=== PATIENT | male | born 1985 | race Caucasian/White ===

== ENCOUNTER 2022-08-07 16:40 | Emergency (ER) | payer OTHER, SELFPAY ==
--- NOTE | ~2022-08-07 | CT_ITS ---
EXAMINATION: CT brain wo con DATE: 08/07/2022 17:43 INDICATION: Syncope. Possible seizure. TECHNIQUE: Computed tomography (CT) of the head was performed without intravenous contrast. The mA wa s adjusted according to patient size. Iterative reconstruction technique was employed. Exam dose: 68 1.00 mGy-cm total exam DLP. COMPARISON: None FINDINGS: No intracranial mass lesion or hemorrhage or cerebrovascular accident. No midline shift or mass effect. Normal benson-white matter differentiation. Normal ventricular size. No subdural or epidur al hematoma. Orbital contents are normal. No fracture or bone destruction of the cranial vault. The mastoid air cells and paranasal sinuses are normally developed and aerated. IMPRESSION: Negative Reviewed, dictated and finalized at [facility]. Reviewed, dictated and finalized at location [facility]. IMPRESSION: Negative
--- NOTE | ~2022-08-07 | XR_ITS ---
XR chest 2V DATE: 08/07/2022 17:52 INDICATION: Chest pressure. Syncope, seizure. TECHNIQUE: PA and lateral views COMPARISON: None FINDINGS: Normal heart size. No hilar or mediastinal enlargement. No pulmonary infiltrate or consolid ation, pleural effusion or pulmonary vascular congestion or pneumothorax is detected. IMPRESSION: No active cardiopulmonary disease Reviewed, dictated and finalized at location [facility].
[2022-08-07 16:38] VITALS: BP 113/82; PULSE 57; RESP 18; TEMP 36.2; O2SAT 95
--- NOTE | 2022-08-07 16:47 | ECG_ITS ---
Measurements Intervals [place] Rate: 52 P: 41 [place]: 187 QRS: 0 QRSD: 100 T: 17 QT: 414 QTc: 385 Interpretive Statements SINUS BRADYCARDIA RSR' IN V1 OR V2, CONSIDER RIGHT VENTRICULAR HYPERTROPHY OR RIGHT VCD BORDERLINE ECG NO PREVIOUS ECG AVAILABLE FOR COMPARISON Electronically Signed On 08-07-2022 20:00:49 CDT by Yong Ambrose D.O.
[2022-08-07 16:54] LABS: Basophils Absolute Auto 0.1 K/mm3 (0.0-0.1); Basophils Percent Auto 1.1 % (0.2-1.2); Eosinophils Absolute Auto 0.1 K/mm3 (0-0.3); Eosinophils Percent Auto 2.1 % (0-4.4); Hematocrit 40.5 % (42.0-52.0); Hemoglobin 14.1 g/dL (14.0-18.0); Immature Granulocyte Absolute 0.01 K/mm3 (0.00-0.031); Immature Granulocyte Percent A 0.2 % (0-0.5); Lymphocytes Absolute Auto 3.07 K/mm3 (0.9-3.2); Lymphocytes Percent Auto 54.5 % (18.3-44.2); Mean Corpuscular HGB Conc 34.8 g/dl (32-36); Mean Corpuscular Hemoglobin 30.6 pg (26-34); Mean Corpuscular Volume 87.9 fl (80-100); Monocytes Absolute Auto 0.5 K/mm3 (0.1-0.6); Monocytes Percent Auto 9.6 % (2.6-8.5); Neutrophils Absolute Auto 1.8 K/mm3 (1.3-6.7); Neutrophils Percent Auto 32.5 % (45.5-73.1); Platelet Count Result 221 k/mm3 (150-375); Red Blood Count 4.61 M/mm3 (4.6-6.20); Red Cell Distribution Width 12.4 % (11.5-14.5); White Blood Count 5.6 K/mm3 (4.5-10.0)
[2022-08-07 17:03] LABS: Alanine Aminotransferase 20 U/L (6-50); Albumin Level 4.2 g/dL (3.5-5.1); Alkaline Phosphatase 82 U/L (38-126); Anion Gap 5 mmol/L (8-16); Aspartate Amino Transferase 27 U/L (17-59); Bilirubin,Total 0.4 mg/dL (0.2-1.3); Blood Urea Nitrogen 15 mg/dL (9-20); Calcium 8.5 mg/dL (8.4-10.2); Carbon Dioxide 29 mmol/L (22-30); Chloride 104 mmol/L (98-107); Estimated CRCL calculation 96 ml/min; Estimated Glomerular Filt Rate > 60; Glucose 97 mg/dL (65-110); Potassium 3.3 mmol/L (3.4-5.0); Sodium 138 mmol/L (137-145)
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
[2022-08-07] MEDS: SODIUM CHLORIDE 0.9% IV 1,000 ML 999 ML IV CONT (17:42)
[2022-08-07 18:05] LABS: Prothrombin Time 13.6 Seconds (11.1-14.7)
[2022-08-07 18:06] LABS: Magnesium 2.1 mg/dL (1.6-2.3); Partial Thromboplastin Time 28.7 SECONDS (22.3-36.8)
[2022-08-07 18:07] LABS: Ethanol < 10 mg/dL (<10)
[2022-08-07 18:19] LABS: Troponin I < 0.012 ng/mL (0.000-0.034)
[2022-08-07 18:55] VITALS: BP 117/84; PULSE 56; RESP 18; O2SAT 100
[2022-08-07 19:18] LABS: Amphetamine Screen Urine Negative (Negative); Barbiturate Screen Urine Negative (Negative); Benzodiazepines Screen Urine Negative (Negative); Cannabinoid Screen Urine Negative (Negative); Cocaine Screen Urine Negative (Negative); Methadone Screen Urine Negative (Negative); Opiate Screen Urine Negative (Negative); Phencyclidine Screen Urine Negative (Negative)
[2022-08-07 19:19] LABS: Appearance Urine Clear (Clear); Bacteria Urine None Seen /hpf; Bilirubin Urine Negative (Negative); Blood Urine Negative (Negative); Color Urine Yellow (Yellow); Glucose Urine UA Negative (Negative); Ketones Urine Negative (Negative); Leukocyte Esterase Ur 1+ LEU/UL (Negative); Need Manual Microscopic Reviewed; Nitrate Urine Negative (Negative); Non Pathogenic Casts 0-2; Protein Urine Negative (Negative); RBC Urine 0-2 /hpf (0-2); Specific Grav Ur 1.018 (1.001-1.035); Squamous Epithelial Cell Urine None seen /hpf (Few); WBC Urine 0-5 /hpf; pH Urine 6.5 (5.0-9.0)
[2022-08-07 19:25] LABS: Add Urine Microscopic? YES
[2022-08-07 20:03] VITALS: BP 116/82; PULSE 61; RESP 16; O2SAT 100
[2022-08-07] MEDS: POTASSIUM CHLORIDE 20 MEQ ER TABLET 40 MEQ PO (20:06)
== END 2022-08-07 20:21 | disposition home or self-care (01) ==
PROVIDERS: Emergency Provider Emergency Medicine
DX: R56.9 Unspecified convulsions (principal); R00.1 Bradycardia, unspecified; R94.31 Abnormal electrocardiogram [ECG] [EKG]
CPT/HCPCS: 36415; 70450; 71046; 80053; 80307; 81001; 83605; 83735; 84484; 85025; 85610; 85730; 93005; 96360; 99284; A9270; J7030

== ENCOUNTER 2022-08-24 07:44 | Inpatient (IN) | payer OTHER, SELFPAY ==
[2022-08-24] VITALS (14 sets, daily range): BP systolic 107–131; BP diastolic 68–81; PULSE 51–93; RESP 12–21; TEMP 36.4–36.6; O2SAT 96–100; BMI 27.1
--- NOTE | 2022-08-24 | ECHO_ITS ---
Patient Info Name: Vitaly Hinds Age: 37 years : 1985 Gender: Male Ht: 68 in Wt: 178 lbs BSA: 1.98 m2 HR: 72 bpm BP: 117 / 80 mmHg Heart Rhythm: Sinus Rhythm Technical Quality: Fair Exam Date: 08/24/2022 2:47 PM Exam Location: [facility] Exam Room: ICU6 Patient Status: Inpatient Admit Date: 08/24/2022 Staff Ordering Physician: Jw Ball MD [employer] Claim Examiner: Helen Yip RCS Attending Provider: Antonio Pompa MD Exam Type: CA echo doppler color flow Study Info Indications - SYNCOPE Complete two-dimensional, color flow and Doppler transthoracic echocardiogram is performed. Summary 1. Complete two-dimensional, color flow and Doppler transthoracic echocardiogram is performed. 2. Left ventricular chamber dimension is normal. 3. Left ventricular systolic function is normal, estimated at 60-65%. 4. Right ventricular systolic function is normal. 5. There is trivial pericardial effusion. 6. No significant valvular disease. Left Ventricle Left ventricular chamber dimension is normal. Left ventricular systolic function is normal, estimated at 60-65%. There is no increased left ventricular wall thickness. The left ventricular diastolic function is normal. Right Ventricle Right ventricular chamber dimension is normal. Right ventricular systolic function is normal. Left Atria Left atrial chamber dimension is normal. Right Atria Right atrial chamber dimension is normal. Atrial Septum Intact interatrial septum visualized by color flow imaging. Aortic Valve The aortic valve is probable trileaflet. There is no aortic valve stenosis. There is no aortic valve regurgitation. Pulmonic Valve The pulmonic valve is not well visualized. Mitral Valve There is trace mitral valve regurgitation. Tricuspid Valve There is trace tricuspid valve regurgitation. Pericardium/Pleural There is trivial pericardial effusion. Inferior Vena Cava Normal inferior vena cava with >50% collapse upon inspiration consistent with normal right atrial pressure, 3 mmHg. Aorta The aortic root size at the sinus of Valsalva is normal. Left Ventricular Outflow Tract Name Value Normal LVOT 2D LVOT Diameter 2.1 cm LVOT Doppler LVOT Peak Gradient 6 mmHg LVOT Mean Gradient 3 mmHg LVOT VTI 22 cm LVOT VTI/AV VTI Ratio 0.9 LVOT Stroke Volume 77 ml LVOT CO 17.4 l/min LVOT CI 8.8 l/min/m2 Pulmonic Valve Name Value Normal PV Doppler PV Peak Gradient 3 mmHg Mitral Valve Name Value Normal MV Doppler
--- NOTE | ~2022-08-24 | XR_ITS ---
Portable chest x-ray Comparison: 08/24/2022 Clinical History: Pacemaker placed Findings: Lungs are clear, without focal consolidation, pleural effusion, or pneumothorax. Cardiome diastinal silhouette is stable, now with pacemaker. Bones and soft tissues are unremarkable. Impression: Status post pacemaker placement, with leads in appropriate position. Clear lungs. No pneumothorax. Reviewed, dictated and finalized at location . Impression: Status post pacemaker placement, with leads in appropriate position. Clear lungs. No pneumothorax.
--- NOTE | ~2022-08-24 | XR_ITS ---
Portable chest x-ray Comparison: 08/07/2022 Clinical History: Syncope Findings: Lungs are clear, without focal consolidation or pleural effusion. Cardiomediastinal silho uette is stable. Bones and soft tissues are unremarkable. Impression: Clear lungs. Reviewed, dictated and finalized at location . Impression: Clear lungs.
--- NOTE | ~2022-08-24 | XR_ITS ---
EXAMINATION: XR chest 2V 08/26/2022 12:31 INDICATION: Pacemaker insertion PROCEDURE: 2 view chest COMPARISON: 08/25/2022 FINDINGS: The lungs are clear. The cardiomediastinal silhouette is within normal limits. There are no pleural effusions. There is no pneumothorax suspected. Sequential pacemaker leads in the right a trium and right ventricle respectively. IMPRESSION: 1: NO ACUTE CARDIOPULMONARY DISEASE. Reviewed, dictated and finalized at location A.
--- NOTE | 2022-08-24 08:02 | ECG_ITS ---
Measurements Intervals [place] Rate: 64 P: 38 MD: 188 QRS: 17 QRSD: 100 T: 27 QT: 376 QTc: 389 Interpretive Statements SINUS RHYTHM INCOMPLETE RIGHT BUNDLE BRANCH BLOCK ST ELEVATION IN DIFFUSE LEADS- PROBABLY EARLY REPOLARIZATION BORDERLINE ECG COMPARED TO ECG 08/07/2022 19:39:38 SINUS RHYTHM NOW PRESENT Electronically Signed On 08-24-2022 8:50:44 CDT by Yong Ambrose D.O.
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
[2022-08-24 08:48] LABS: Basophils Absolute Auto 0.1 K/mm3 (0.0-0.1); Basophils Percent Auto 1.1 % (0.2-1.2); Eosinophils Absolute Auto 0.1 K/mm3 (0-0.3); Eosinophils Percent Auto 1.8 % (0-4.4); Hemoglobin 14.7 g/dL (14.0-18.0); Immature Granulocyte Absolute 0.04 K/mm3 (0.00-0.031); Immature Granulocyte Percent A 0.9 % (0-0.5); Lymphocytes Absolute Auto 1.29 K/mm3 (0.9-3.2); Lymphocytes Percent Auto 28.5 % (18.3-44.2); Mean Corpuscular HGB Conc 34.2 g/dl (32-36); Mean Corpuscular Hemoglobin 30.6 pg (26-34); Mean Corpuscular Volume 89.4 fl (80-100); Mean Platelet Volume 9.4 fl (7.4-10.4); Monocytes Absolute Auto 0.4 K/mm3 (0.1-0.6); Monocytes Percent Auto 8.8 % (2.6-8.5); Neutrophils Absolute Auto 2.7 K/mm3 (1.3-6.7); Neutrophils Percent Auto 58.9 % (45.5-73.1); Platelet Count Result 225 k/mm3 (150-375); Red Blood Count 4.81 M/mm3 (4.6-6.20); Red Cell Distribution Width 12.4 % (11.5-14.5); White Blood Count 4.5 K/mm3 (4.5-10.0)
[2022-08-24 09:03] LABS: Alanine Aminotransferase 24 U/L (6-50); Albumin Level 4.1 g/dL (3.5-5.1); Alkaline Phosphatase 66 U/L (38-126); Anion Gap 8 mmol/L (8-16); Aspartate Amino Transferase 28 U/L (17-59); Bilirubin,Total 0.5 mg/dL (0.2-1.3); Blood Urea Nitrogen 17 mg/dL (9-20); Calcium 8.9 mg/dL (8.4-10.2); Carbon Dioxide 29 mmol/L (22-30); Chloride 101 mmol/L (98-107); Estimated Glomerular Filt Rate > 60; Glucose 112 mg/dL (65-110); Lactic Acid Reflex 1.6 mmol/L (0.7-2.0); Potassium 3.7 mmol/L (3.4-5.0); Sodium 138 mmol/L (137-145)
[2022-08-24] MEDS: LORazepam INJ (*CRX) 2 MG/ML VIAL (09:03)
[2022-08-24] MEDS: SODIUM CHLORIDE 0.9% IV 1,000 ML 999 ML (09:04)
[2022-08-24 09:14] LABS: Troponin I < 0.012 ng/mL (0.000-0.034)
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
--- NOTE | 2022-08-24 11:59 | PC.NURSE ---
This patient, Vitaly Hinds, was admitted to Intensive Care Unit-6. Patient/family oriented to hospital policies and general routines including ID bracelet, bed and alarms, visiting hours, pain management, procedures, bathroom and other care routines, personal items, smoking policy, room service/diet, and visiting hours. Information on how to activate the Rapid Response Team has been discussed. Patient/Family are encouraged to report perceived risks to care and to ask questions if they do not understand what they are told or what they should do.
[2022-08-24] MEDS: POTASSIUM CHLORIDE 20 MEQ ER TABLET 40 MEQ PO (12:02)
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
[2022-08-25] VITALS (17 sets, daily range): BP systolic 98–125; BP diastolic 42–91; PULSE 61–86; RESP 12–19; TEMP 36.6–36.8; O2SAT 96–100
[2022-08-25 07:25] LABS: Alanine Aminotransferase 23 U/L (6-50); Alkaline Phosphatase 60 U/L (38-126); Anion Gap 7 mmol/L (8-16); Aspartate Amino Transferase 27 U/L (17-59); Bilirubin,Total 0.7 mg/dL (0.2-1.3); Blood Urea Nitrogen 11 mg/dL (9-20); Carbon Dioxide 27 mmol/L (22-30); Chloride 105 mmol/L (98-107); Estimated CRCL calculation 120 ml/min; Estimated Glomerular Filt Rate > 60; Glucose 98 mg/dL (65-110); Magnesium 2.2 mg/dL (1.6-2.3); Potassium 3.6 mmol/L (3.4-5.0); Sodium 139 mmol/L (137-145)
--- NOTE | 2022-08-25 07:54 | WPDMODSED ---
Moderate Sedation Note-Pt Data Patient Data Diagnosis: Syncope with sick sinus syndrome Present Complaint: Intermittent syncopal episodes Procedure to be performed/Plan: Permanent pacemaker implantation Allergies Allergy/AdvReac Type Severity Reaction Status Date / Time No Known Allergies Allergy Verified 08/07/22 17:43 Home Medications Medication Instructions Recorded Confirmed Type fluticasone propionate 50 2 spray intranasal DAILY 08/24/22 08/24/22 History mcg/actuation nasal spray,suspension omeprazole 40 mg capsule,delayed 40 mg PO DAILY 08/24/22 08/24/22 History release sodium chloride, sodium 1 ea DAILY PRN Nasal Congestion 08/24/22 08/24/22 History bicarb-nasal rinse squeeze bottle with packet ([place] Sinus Rinse with packet) Current Medications: Active Medications Perflutren Lipid Microsphere (Perflutren Lipid Microspheres 1.5 Ml Vial Diluted To 10 Ml Total Volume) 0 ml IV PUSH ONCE PRN; Protocol PRN Reason: adequate visualization Stop: 08/26/22 10:51 Sedation/Anesthesia: No previous sedation/anesthesia problems (including family history). [facility] Surgical History Surgical History S/P tonsillectomy [place] teeth removed Family History Family History Father Cardiac arrest Cerebral palsy Mother Heart disease COPD (chronic obstructive pulmonary disease) Osteoarthritis Fibromyalgia Social History Social History Social History: Denies smoking alcohol and drug use. Smoking status: Never smoker Alcohol intake: never Substance use: never Substance use type: does not use Lack of Transportation: No Lack of Food: Never True Current Housing: I Have Housing Concerned About Future Housing: No Difficulty Paying Gas/Electric Bills: No Difficulty Paying for Meds: No Currently Unemployed: No Education: Trade/Vocational Certificate Difficulty w/ Childcare or Family Care: No Spiritual care concerns: No Mod Sed Physical Exam Physical Exam Pre Procedural Exam: Normal: Appearance, Neck, Throat, Airway, Lungs, Heart Size, Heart Rate, Heart Rhythm, Neuro Exam and Extremities Hours since solid foods: 12 Hours since liquid intake: 12 Mallampati Classification: class II Internal Medicine - PN: Obj Da Vital Signs Vital Signs: Vital Signs - 24 hr 08/24/22 07:56 08/24/22 08:36 08/24/22 08:46 Temperature 36.4 C Pulse Rate 65 64 66 Respiratory Rate 12 21 H 16 Blood Pressure 119/78 116/76 108/75 Pulse Oximetry 97 97 98 Oxygen Delivery Room Air 08/24/22 08:54 08/24/22 09:16 08/24/22 10:01 Temperature Pulse Rate 51 L 74 85 Respiratory Rate 17 17 14 Blood Pressure 124/73 112/71 117/80 Pulse Oximetry 98 100 100 Oxygen Delivery 08/24/22 11:30 08/24/22 11:33 08/24/22 12:00 Temperature Pulse Rate 83 86 87 Respiratory Rate 20 Blood Pressure 116/70 Pulse Oximetry 100 Oxygen Delivery 08/24/22 12:00 08/24/22 14:00 08/24/22 14:00 Temperature 36.6 C Pulse Rate 87 75 75 Respiratory Rate 20 14 Blood Pressure 131/73 111/71 Pulse Oximetry 100 99 Oxygen Delivery 08/24/22 16:00 08/24/22 16:00 08/24/22 16:00 Temperature 36.4 C Pulse Rate 75 78 78 Respiratory Rate 18 18 Blood Pressure 107/68 Pulse Oximetry 100 100 Oxygen Delivery Room Air 08/24/22 18:00 08/24/22 18:00 08/24/22 20:00 Temperature 36.6 C Pulse Rate 93 93 87 Respiratory Rate 20 20 Blood Pressure 124/76 Pulse Oximetry 100 100 Oxygen Delivery 08/24/22 20:00 08/24/22 22:00 08/24/22 22:00 Temperature Pulse Rate 82 68 68 Respiratory Rate 19 Blood Pressure 116/81 Pulse Oximetry 96 Oxygen Delivery 08/25/22 00:00 08/25/22 00:00 08/25/22 00:00 Temperature 36.6 C Pulse Rate 68 63 61 Respiratory Rate 19 14 Blood Pressure 98/42 L Pulse
--- NOTE | 2022-08-25 08:39 | WPDINTPN ---
Progress Note: A&P Assessment and Plan (1) Syncope, cardiogenic: Code(s): R55 - Syncope and collapse Status: Acute Assessment and Plan: Patient presented with history of multiple episodes of loss of consciousness and had a witnessed episode in the ER which was associated with 20+ second sinus pause on telemetry He had episode of sinus bradycardia in 30s with spontaneous recovery while I was interviewing him in the room Continue ICU telemetry monitoring, pacing pads on, atropine at bedside Cardiology consulted and plan for permanent pacemaker placement today Echocardiogram was unremarkable Replace potassium EKG reviewed Normal tsh and negative UDS (2) Sinus pause: Code(s): I45.5 - Other specified heart block Status: Acute Assessment and Plan: See above (3) Electrolyte abnormality: Code(s): E87.8 - Other disorders of electrolyte and fluid balance, not elsewhere classified Status: Acute Assessment and Plan: Potassium is on the lower side of normal. Ordered replacement Plan DVT prophylaxis -SCDs Code Status - Full Code Subjective Date/time seen: 08/25/22 Overnight events reviewed. Afebrile He states he had couple of episodes yesterday evening where he felt he was going to pass out but did not in symptoms spontaneous resolved within few seconds Sinus rhythm on the monitor On room air Other vitals acceptable Patient denies fever, chest pain, shortness of breath, cough, nausea vomiting, abdominal pain,, diarrhea, headache or constipation. All other systems were reviewed and were negative Review of Systems Review of Systems: All systems reviewed & are unremarkable except as noted in HPI and below (HPI) Exam Narrative: General: Pt is alert awake and in NAD Lungs/Chest: Trachea central Clear BS B/L, No crackles or wheezing. Cardiac: RRR. Normal S1 S2. No murmurs Circulation: Pedal pulses are intact and symmetrical. Abdomen: Normal bowel sounds.. Soft. NT. ND. Extremities: No clubbing, cyanosis or edema. Warm : Horton in place Neurologic: Follows commands. AO x3, muscle strength 5/5 bilaterally, cranial nerves 2-12 intact, extraocular muscles intact, no facial discrepancy, finger-nose test normal PERRL Skin: No Rash Objective Data Vital Signs Vital Signs: Vital Signs - 24 hr 08/24/22 08:46 08/24/22 08:54 08/24/22 09:16 Temperature Pulse Rate 66 51 L 74 Respiratory Rate 16 17 17 Blood Pressure 108/75 124/73 112/71 Pulse Oximetry 98 98 100 Oxygen Delivery 08/24/22 10:01 08/24/22 11:30 08/24/22 11:33 Temperature Pulse Rate 85 83 86 Respiratory Rate 14 20 Blood Pressure 117/80 116/70 Pulse Oximetry 100 100 Oxygen Delivery 08/24/22 12:00 08/24/22 12:00 08/24/22 14:00 Temperature 36.6 C Pulse Rate 87 87 75 Respiratory Rate 20 Blood Pressure 131/73 Pulse Oximetry 100 Oxygen Delivery 08/24/22 14:00 08/24/22 16:00 08/24/22 16:00 Temperature Pulse Rate 75 75 78 Respiratory Rate 14 18 Blood Pressure 111/71 Pulse Oximetry 99 100 Oxygen Delivery Room Air 08/24/22 16:00 08/24/22 18:00 08/24/22 18:00 Temperature 36.4 C Pulse Rate 78 93 93 Respiratory Rate 18 20 Blood Pressure 107/68 Pulse Oximetry 100 100 Oxygen Delivery 08/24/22 20:00 08/24/22 20:00 08/24/22 22:00 Temperature 36.6 C Pulse Rate 87 82 68 Respiratory Rate 20 19 Blood Pressure 124/76 116/81 Pulse Oximetry 100 96 Oxygen Delivery 08/24/22 22:00 08/25/22 00:00 08/25/22 00:00 Temperature 36.6 C Pulse Rate 68 68 63 Respiratory Rate 19 14 Blood Pressure 98/42 L Pulse Oximetry 96 98 Oxygen Delivery Room Air 08/25/22 00:00 08/25/22 08:00 08/25/22 08:00 Temperature 36.6 C Pulse Rate 61 71 71 Respiratory Rate 12 Blood Pressure 124/79 Pulse Oximetry 100 Oxygen Delivery Intake/Output Intake/Output: Intake & Output 08/22/22 08/23/22 08/24/22 08/25/22 23:59 23:59 23:5
[2022-08-25 09:09] LABS: Hematocrit 44.2 % (42.0-52.0); Hemoglobin 15.2 g/dL (14.0-18.0); Mean Corpuscular HGB Conc 34.4 g/dl (32-36); Mean Corpuscular Hemoglobin 30.8 pg (26-34); Mean Corpuscular Volume 89.7 fl (80-100); Mean Platelet Volume 9.3 fl (7.4-10.4); Platelet Count Result 252 k/mm3 (150-375); Red Blood Count 4.93 M/mm3 (4.6-6.20); Red Cell Distribution Width 12.6 % (11.5-14.5); White Blood Count 7.8 K/mm3 (4.5-10.0)
[2022-08-25] MEDS: POTASSIUM CHLORIDE 20 MEQ ER TABLET 40 MEQ PO (09:22)
--- NOTE | 2022-08-25 11:08 | PC.NURSE ---
pt left via bed to clinical laboratory scientist for pacemaker placement with tw0 clinical laboratory scientist nurses at this time, family at bedside and aware of all plans
--- NOTE | 2022-08-25 12:33 | ECG_ITS ---
Measurements Intervals [place] Rate: 72 P: 58 ID: [id number] QRS: 25 QRSD: 100 T: 26 QT: 366 QTc: 403 Interpretive Statements SINUS RHYTHM DELAYED PRECORDIAL R/S TRANSITION BORDERLINE ECG COMPARED TO ECG 08/24/2022 08:20:42 NO SIGNIFICANT CHANGES Electronically Signed On 08-25-2022 15:42:18 CDT by Yong Ambrose D.O.
--- NOTE | 2022-08-25 12:37 | WPDCARDPROC ---
Cardiac Cath Procedure Note Date of procedure:: 08/25/22 Performing physician:: Gage Keyes MD Indication:: syncope with sick sinus syndrome Brief clinical history:: this is an otherwise healthy 37-year-old who has been having syncopal episodes several months. He is found in the hospital to have impressive sick sinus syndrome with long asystolic pause of 60 seconds or more. He is on no medications that would affect his AV node or SA node and he has no other significant medical problems. Procedure Procedure performed:: Implantation of permanent pacemaker Sedation/Medication given:: fentanyl 75 mg Versed 2 mg Access site:: left subclavian vein Estimated blood loss:: 20 cc Procedure note:: patient was brought to the cardiac catheterization lab in the postabsorptive state where the left anterior chest wall was prepped and draped in the usual fashion. Anesthesia was given with 1% lidocaine infiltrated below the clavicle. Following that an incision was made 1 in below the clavicle from the midclavicular line to the deltopectoral groove. Sharp and blunt dissection was used to separate the subcutaneous tissue to the level of the prepectoral fascia. Electrocautery was used for cutaneous hemostasis. Following this blunt dissection was used to create a pacemaker pocket along the fascial plane inferior to the incision. This pocket was then packed with antibiotic soaked 4 x 4. Attention was then turned to venous access. Using the 2 pacemaker safe sheath kits 2 punctures were made of the left subclavian vein and the J wires were placed into the venous circulation and under fluoroscopic visit visualization were advanced to the right atrial position. The 2 states she has were then used to insert the leads mentioned below into the venous circulation and they were placed into the right atrium. The sheaths were peeled away. Attention was then turned to replacing the ventricular lead. The stylet was withdrawn and a 3 cc syringe was used to fashion a J-tip stylet which was used to steer the lead into the right ventricle. A straight stylette was used to prolapse the lead into the apical position the fixation screw was then deployed and the lead was fixed into position. The analyzer was used to wet end tester performance which was appropriate both pacing and sensing and a 10 volts stimulation showed no evidence of extracardiac stimulation. Following this attention was turned to positioning the atrial lead. The stylet was removed and a preformed atrial J stylet was used to maneuver the lead tip into the right atrial appendage position. The fixation screw was then deployed upon withdrawal stylet the lead tip was fixed into position. The lead was then tested using the al eyes are again appropriate pacing and sensing performed as was demonstrated and a 10 pole stimulus also showed no evidence of extracardiac stimulation. The leads were then secured to the base of the pocket using the suture sleeves and 2-0 silk ties. Following this the retained sponge was removed the pocket and this was in the irrigated with antibiotic infused saline. Following this the pacemaker generator was connected to the leads using the torque wrench and the entire assembly was placed into the pocket. I used a 2-0 silk anchor tied to stitch the generator to the base of the pocket and then closed the pocket in using 3-0 Vicryl interrupted fashion for the subcutaneous tissue and 4-0 Vicryl in a running subcuticular fashion for the skin. The wound was dressed with an Aquacel dressing the patient was taken to the ICU with the left arm will be placed in an immobilizer postop antibiotics and analgesics were ordered. The procedure Was well tolerated and uncomplicated. Findings:: patient received a [employer] dual-chamber pacing system model W1DR01 serial number [id number] . The device is programmed in the AAI/DDD mode lower rate limit 50 upper tracking rate 200 upper activity rate 175.
[2022-08-25] MEDS: SODIUM CHLORIDE 0.9% IV 1,000 ML 125 ML IV CONT (13:01)
[2022-08-25] MEDS: ceFAZolin 1 GM/NS 50 ML 1 GM/50 ML BAG IVPB (18:48)
[2022-08-25] MEDS: HYDROcodone/acetaminophen (*CRX) 5-325 MG TABLET 1 TAB PO (19:45)
[2022-08-26] VITALS (7 sets, daily range): BP systolic 96–124; BP diastolic 62–81; PULSE 57–87; RESP 12–17; TEMP 36.5–36.8; O2SAT 96–99
[2022-08-26] MEDS: ceFAZolin 1 GM/NS 50 ML 1 GM/50 ML BAG IVPB ×2 (04:33→11:05)
[2022-08-26 04:42] LABS: Hematocrit 42.8 % (42.0-52.0); Hemoglobin 14.4 g/dL (14.0-18.0); Mean Corpuscular HGB Conc 33.6 g/dl (32-36); Mean Corpuscular Hemoglobin 30.3 pg (26-34); Mean Corpuscular Volume 89.9 fl (80-100); Mean Platelet Volume 9.1 fl (7.4-10.4); Platelet Count Result 204 k/mm3 (150-375); Red Blood Count 4.76 M/mm3 (4.6-6.20); Red Cell Distribution Width 12.3 % (11.5-14.5); White Blood Count 6.8 K/mm3 (4.5-10.0)
[2022-08-26 04:54] LABS: Alanine Aminotransferase 21 U/L (6-50); Albumin Level 3.8 g/dL (3.5-5.1); Alkaline Phosphatase 64 U/L (38-126); Anion Gap 6 mmol/L (8-16); Aspartate Amino Transferase 35 U/L (17-59); Bilirubin,Total 0.6 mg/dL (0.2-1.3); Blood Urea Nitrogen 14 mg/dL (9-20); Calcium 8.6 mg/dL (8.4-10.2); Carbon Dioxide 26 mmol/L (22-30); Chloride 105 mmol/L (98-107); Estimated CRCL calculation 95 ml/min; Estimated Glomerular Filt Rate > 60; Glucose 95 mg/dL (65-110); Magnesium 1.9 mg/dL (1.6-2.3); Potassium 3.9 mmol/L (3.4-5.0); Sodium 137 mmol/L (137-145)
--- NOTE | 2022-08-26 07:51 | WPDINTPN ---
Progress Note: A&P Assessment and Plan (1) Syncope, cardiogenic: Code(s): R55 - Syncope and collapse Status: Acute Assessment and Plan: Patient presented with history of multiple episodes of loss of consciousness and had a witnessed episode in the ER which was associated with 20+ second sinus pause on telemetry He had episode of sinus bradycardia in 30s with spontaneous recovery while being intubated in the room on admission 08/26: Status post permanent pacemaker, cardiology Echocardiogram was unremarkable Normal TSH and negative UDS -no more syncopal episodes post pacemaker placement (2) Sinus pause: Code(s): I45.5 - Other specified heart block Status: Acute Assessment and Plan: See above (3) Electrolyte abnormality: Code(s): E87.8 - Other disorders of electrolyte and fluid balance, not elsewhere classified Status: Acute Assessment and Plan: Potassium has improved after replacement Plan DVT prophylaxis -SCDs Nutrition: Heart healthy diet Code Status: Full code Critical Care Time Spent: 31 minutes ?Due to a high probability of clinically significant, life threatening deterioration, the patient required my highest level of preparedness to intervene emergently and I personally spent this critical care time directly and personally managing the patient. This critical care time included obtaining a history; examining the patient; pulse oximetry; ordering and review of studies; arranging urgent treatment with development of a management plan; evaluation of patient's response to treatment; frequent reassessment; and discussions with other providers. It was exclusive of separately billable procedures and treating other patients and teaching time. Please see Assessment and Plan section and the rest of the note for further information on patient assessment and treatment This dictation may have been done utilizing a voice recognition system. Attempts have been made to correct errors. However, there may be uncorrected grammatical, spelling, and recognitions errors present. Subjective Date/time seen: 08/26/22 07:51 Interval history: Reason for consult: Syncope, with sinus bradycardia and a long pause/asystole 08/25/2022: Permanent pacemaker implanted 08/26/2022: Patient seen and examined the ICU, states he is feeling better, little sore in the area of the pacemaker site. No syncopal episodes overnight. Denies any shortness on breath, abdominal pain, nausea, vomiting. Review of Systems Review of Systems: All systems reviewed & are unremarkable except as noted in HPI and below (HPI) Exam Narrative: General: Pt is alert awake and in NAD Lungs/Chest: Trachea central Clear BS B/L, No crackles or wheezing. Dressing on left chest at pacemaker site clean/dry/ intact Cardiac: RRR. Normal S1 S2. No murmurs Circulation: Pedal pulses are intact and symmetrical. Abdomen: Normal bowel sounds.. Soft. NT. ND. Extremities: No clubbing, cyanosis or edema. Warm : Horton in place Neurologic: Pupils equal and reactive, patient is awake, alert oriented x3, nonfocal Skin: No Rash Objective Data Vital Signs Vital Signs: Vital Signs - 24 hr 08/25/22 08:00 08/25/22 08:00 08/25/22 08:00 Temperature 98 F Pulse Rate 71 71 71 Respiratory Rate 12 12 Blood Pressure 124/79 Pulse Oximetry 100 100 Oxygen Delivery Room Air 08/25/22 10:00 08/25/22 10:00 08/25/22 10:20 Temperature Pulse Rate 69 69 Respiratory Rate 18 Blood Pressure 120/77 Pulse Oximetry 100 100 Oxygen Delivery Room Air 08/25/22 12:56 08/25/22 13:10 08/25/22 13:17 Temperature 98 F 98 F Pulse Rate 64 64 64 Respiratory Rate 14 13 13 Blood Pressure 112/75 112/75 Pulse Oximetry 100 99 99 Oxygen Delivery Room Air 08/25/22 13:19 08/25/22 13:34 08/25/22 14:00 Temperature Pulse Rate 72 77 78 Respiratory Rate 12 12 Blood Pressure 114/76 125/91 H Pulse Oximetry 100 98 Ox
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
--- NOTE | 2022-08-26 13:15 | PC.NURSE ---
Notified Care coordination of discharge
== END 2022-08-26 13:30 | disposition home or self-care (01) | DRG 244 ==
LOC: ANHED 09:29 → ANHICU 10:06
PROVIDERS: Internal Medicine; Specialist; Admitting Provider Internal Medicine Cardiovascular Disease; Emergency Provider Emergency Medicine; Visit Provider Internal Medicine Cardiovascular Disease
PROC: 0JH606Z Insertion of Pacemaker, Dual Chamber into Chest Subcutaneous Tissue and Fascia, Open Approach (ICD-10-PCS; CPT 33208; principal; 2022-08-25 10:30)
DX: I49.5 Sick sinus syndrome (principal); I45.5 Other specified heart block; R55 Syncope and collapse; E87.8 Other disorders of electrolyte and fluid balance, not elsewhere classified
CPT/HCPCS: 33208; 36415; 71045; 71046; 80053; 83605; 83735; 84443; 84484; 85025; 85027; 93005; 93306; 96374; 99285; A9270; C1779; C1785; J0461; J0690; J2060; J2250; J3010; J7030; J7040

== ENCOUNTER 2023-08-13 16:34 | Emergency (ER) | payer OTHER, SELFPAY ==
--- NOTE | ~2023-08-13 | XR_ITS ---
EXAMINATION: XR chest 1V portable DATE: 08/13/2023 18:00 INDICATION: Cardiac arrhythmia. TECHNIQUE: A single frontal view of the chest was obtained on 2 radiographs. COMPARISON: Chest 2 views 08/26/2022 FINDINGS: There is no pneumonia, pleural effusion, or pneumothorax. The heart size is normal. There i s a left chest wall pacer with leads in the right atrium and right ventricle. IMPRESSION: 1. No acute cardiopulmonary disease. Reviewed, dictated and finalized at location E.
[2023-08-13 16:51] VITALS: BP 134/82; PULSE 79; RESP 15; TEMP 36.3; O2SAT 99
--- NOTE | 2023-08-13 16:53 | ECG_ITS ---
Test Date: 2023-08-13 16:56:49 Measurements Intervals [place] Rate: 77 P: 58 MA: 152 QRS: 43 QRSD: 94 T: 42 QT: 356 QTc: 403 Interpretive Statements SINUS RHYTHM DELAYED PRECORDIAL R/S TRANSITION BASELINE ARTIFACT- V1, V5-V6 BORDERLINE ECG No previous ECG available for comparison Electronically Signed On 08-13-2023 17:40:05 CDT by Yong Ambrose D.O.
[2023-08-13 17:21] VITALS: PULSE 83; RESP 17; O2SAT 99
--- NOTE | 2023-08-13 17:29 | PC.NURSE ---
Spoke with Carlos from [employer] who states pts pacemaker checks out with zero episodes.
[2023-08-13 18:02] LABS: Basophils Percent Auto 0.6 % (0.2-1.2); Eosinophils Absolute Auto 0.1 K/mm3 (0-0.3); Hematocrit 43.8 % (42.0-52.0); Hemoglobin 15.7 g/dL (14.0-18.0); Immature Granulocyte Absolute 0.01 K/mm3 (0.00-0.031); Immature Granulocyte Percent A 0.2 % (0-0.5); Lymphocytes Absolute Auto 2.13 K/mm3 (0.9-3.2); Lymphocytes Percent Auto 34.2 % (18.3-44.2); Mean Corpuscular HGB Conc 35.8 g/dl (32-36); Mean Corpuscular Hemoglobin 31.5 pg (26-34); Mean Platelet Volume 9.2 fl (7.4-10.4); Monocytes Absolute Auto 0.5 K/mm3 (0.1-0.6); Monocytes Percent Auto 8.5 % (2.6-8.5); Neutrophils Absolute Auto 3.5 K/mm3 (1.3-6.7); Neutrophils Percent Auto 55.5 % (45.5-73.1); Platelet Count Result 247 k/mm3 (150-375); Red Blood Count 4.98 M/mm3 (4.6-6.20); Red Cell Distribution Width 11.8 % (11.5-14.5); White Blood Count 6.2 K/mm3 (4.5-10.0)
[2023-08-13 18:13] LABS: INR 1.1; Prothrombin Time 14.1 Seconds (11.1-14.7)
[2023-08-13 18:14] LABS: Partial Thromboplastin Time 30.6 Seconds (22.3-36.8)
[2023-08-13 18:16] LABS: Alanine Aminotransferase 18 U/L (6-50); Albumin Level 4.7 g/dL (3.5-5.1); Alkaline Phosphatase 72 U/L (38-126); Anion Gap 8 mmol/L (4-12); Aspartate Amino Transferase 26 U/L (17-59); Bilirubin,Total 0.9 mg/dL (0.2-1.3); Blood Urea Nitrogen 12 mg/dL (9-20); Calcium 9.4 mg/dL (8.4-10.2); Carbon Dioxide 27 mmol/L (22-30); Chloride 102 mmol/L (98-107); Estimated CRCL calculation 95 ml/min; Estimated Glomerular Filt Rate > 60; Glucose 92 mg/dL (65-110); Potassium 3.7 mmol/L (3.4-5.0); Sodium 137 mmol/L (137-145)
[2023-08-13 18:22] LABS: Amphetamine Screen Urine Negative (Negative); Barbiturate Screen Urine Negative (Negative); Benzodiazepines Screen Urine Negative (Negative); Cannabinoid Screen Urine Negative (Negative); Cocaine Screen Urine Negative (Negative); Methadone Screen Urine Negative (Negative); Opiate Screen Urine Negative (Negative); Phencyclidine Screen Urine Negative (Negative)
[2023-08-13 18:27] LABS: NT Pro B Type Natriuretic Pept < 20 pg/mL (19.9-100); Troponin I < 0.012 ng/mL (0.000-0.034)
[2023-08-13 18:45] VITALS: PULSE 83; RESP 15; O2SAT 100
--- NOTE | 2023-08-13 18:58 | ED.ARRPALP ---
HPI - Arrhythmia/Palpitations General Chief Complaint: Arrhythmia/Palpitations Stated Complaint: ?pacemaker giving an issue Time Seen by Provider: 08/13/23 17:32 Source: patient Mode of arrival: ambulatory Limitations: no limitations History of Present Illness HPI narrative: 37 years old white male came to the emergency room feeling that his pacemaker is pacing intermittently, each time for few seconds. Denies aggravating or relieving factors. He denies any fever, chills, nausea, vomiting, chest pain, shortness of breath. Patient also denied any lightheadedness or dizziness or shortness of breath. Related Data Home Medications Medication Instructions Recorded Confirmed fluticasone propionate 50 2 spray intranasal DAILY 08/24/22 08/24/22 mcg/actuation nasal spray,suspension omeprazole 40 mg capsule,delayed 40 mg PO DAILY 08/24/22 08/24/22 release Allergies Allergy/AdvReac Type Severity Reaction Status Date / Time No Known Allergies Allergy Verified 08/07/22 17:43 Review of Systems Review of Systems: All systems reviewed & are unremarkable except as noted in HPI and below PMFSH Surgical History Surgical History S/P tonsillectomy [place] teeth removed Family History Family History Father Cardiac arrest Cerebral palsy Mother Heart disease COPD (chronic obstructive pulmonary disease) Osteoarthritis Fibromyalgia Social History Social History Social History: Denies smoking alcohol and drug use. Smoking status: Never smoker Alcohol intake: never Substance use: never Substance use type: does not use Lack of Transportation: No Lack of Food: Never True Current Housing: I Have Housing Concerned About Future Housing: No Difficulty Paying Gas/Electric Bills: No Difficulty Paying for Meds: No Currently Unemployed: No Education: Trade/Vocational Certificate Difficulty w/ Childcare or Family Care: No Spiritual care concerns: No Exam Narrative: General appearance: Well-developed, well-nourished Skin: Normal color Head: Normocephalic, nontraumatic Eyes: Clear conjunctiva ENT: Oropharynx normal, ears normal, nose normal Neck: Supple, nontender Chest and respiratory: Airway patent, no respiratory distress, no accessory muscle use Heart: Regular rate/rhythm Abdomen: Soft, nontender, no organomegaly, quiet bowel sounds Vascular: Normal peripheral pulses, normal capillary refill. Musculoskeletal: Normal range of motion, nontender back Neurologic: Alert and oriented ?3, ESTHETICIAN is normal as tested, no gross motor deficit Course Consultations Consultation #1: DR TERAN AGREED WITH THE PLAN TO DISCHARGE PATIENT, Date: 08/13/23 Time: 19:46 Vital Signs Vital signs: Vital Signs Temperature 36.3 C L 08/13/23 16:51 Pulse Rate 79 08/13/23 16:51 Respiratory Rate 15 08/13/23 16:51 Blood Pressure 134/82 08/13/23 16:51 Pulse Oximetry 99 08/13/23 16:51 Temperature 36.3 C L 08/13/23 16:51 Pulse Rate 83 08/13/23 18:45 Respiratory Rate 15 08/13/23 18:45 Blood Pressure 134/82 08/13/23 16:51 Pulse Oximetry 100 08/13/23 18:45 MDM - Arrhythmia/Palpitations MDM Narrative Medical decision making narrative: Differential diagnosis include stress, anxiety, palpitation, cardiac arrhythmia, electrolyte imbalance, dehydration Blood workup today showed no abnormality, pacemaker interrogation showed no acute abnormalities, chest x-ray showed no acute abnormalities. Patient currently is asymptomatic. Cardiolo
== END 2023-08-13 19:45 | disposition home or self-care (01) ==
PROVIDERS: Emergency Provider Emergency Medicine
DX: R00.2 Palpitations (principal); Z95.0 Presence of cardiac pacemaker
CPT/HCPCS: 36415; 71045; 80053; 80307; 83880; 84443; 84484; 85025; 85610; 85730; 93005; 99284